=== PATIENT | female | born 1995 | race Caucasian/White ===

== ENCOUNTER 2017-03-22 15:24 | Emergency (ER) | payer OTHER | END 2017-03-22 16:40 | disposition left against medical advice (07) | LOC: UCCORT 15:24 | DX: J02.9 Acute pharyngitis, unspecified (principal); Z53.21 Procedure and treatment not carried out due to patient leaving prior to being seen by health care provider ==

== ENCOUNTER 2017-03-23 10:01 | Emergency (ER) | payer SELFPAY ==
[2017-03-23] MEDS ORDERED: Ibuprofen TAB* 600 MG PO ONE (10:47)
--- NOTE | 2017-03-23 10:51 | UC ---
Throat Pain/Nasal Jae HPI - HPI Summary HPI Summary: Patient has had sore throat for 3 days, last night it became severe and hard to swollow. Has felt feverish and has RUGGIERO. - History of Current Complaint Stated Complaint: THROAT Time Seen by Provider: 03/23/17 10:45 Hx Obtained From: Patient Hx Last Menstrual Period: 04/27/14 ?: No Onset/Duration: Sudden Onset, Lasting Days Severity: Severe Associated Signs & Symptoms: Positive: Dysphagia, Fever - Epiglottits Risk Factors Epiglottis Risk Factors: Negative - Allergies/Home Medications Allergies/Adverse Reactions: Allergies Allergy/AdvReac Type Severity Reaction Status Date / Time No Known Allergies Allergy Verified 03/23/17 10:59 PMH/Surg Hx/FS Hx/Imm Hx Previously Healthy: Yes - Surgical History Surgical History: None - Family History Known Family History: Negative: Cardiac Disease, Hypertension - Social History Alcohol Use: None Substance Use Type: None Household Exposure Type: Cigarettes Review of Systems Constitutional: Fever, Fatigue Skin: Negative Eyes: Negative ENT: Sore Throat, Ear Ache, Nasal Discharge Respiratory: Cough Cardiovascular: Negative Gastrointestinal: Negative Genitourinary: Negative Motor: Negative Neurovascular: Negative Musculoskeletal: Negative Neurological: Headache Psychological: Negative All Other Systems Reviewed And Are Negative: Yes Physical Exam Triage Information Reviewed: Yes Appearance: Well-Nourished, Ill-Appearing, Pain Distress Vital Signs Reviewed: Yes Eye Exam: Normal Eyes: Positive: Conjunctiva Clear ENT: Positive: Pharyngeal erythema, TM bulging, TM red, Tonsillar swelling - +3 , Tonsillar exudate Dental Exam: Normal Neck exam: Normal Neck: Positive: Supple, Nontender, No Lymphadenopathy Respiratory Exam: Normal Respiratory: Positive: Chest non-tender, Lungs clear, Normal breath sounds Cardiovascular Exam: Normal Cardiovascular: Positive: RRR, No Murmur, Pulses Normal Abdominal Exam: Normal Abdomen Description: Positive: Nontender, No Organomegaly, Soft Musculoskeletal Exam: Normal Musculoskeletal: Positive: Strength Intact, ROM Intact, No Edema Neurological Exam: Normal Neurological: Positive: Alert, Muscle Tone Normal Psychological Exam: Normal Skin Exam: Normal Throat Pain/Nasal Course/Dx - Course Course Of Treatment: Hx obtained, exam performed, meds reviewed, ibuprofen given for pain and fever. Rapid strep obtained and is negative, tonsills are large and inflammed, +3 exudate present. - Differential Dx/Diagnosis Differential Diagnosis/HQI/PQRI: Influenza, Laryngitis, Otitis Media, Pharyngitis, Sinusitis, URI Provider Diagnoses: tonsillitis. fever Discharge - Discharge Plan Condition: Stable Disposition: HOME Patient Education Materials: Tonsillitis (ED) Additional Instructions: 1. take the medications as prescirbed. 2. Increase your fluid intake and get plenty of rest. 3. Continue with Ibuprofen or tylenol every 4 hours as needed. 4. Follow up with any worsening symptoms
[2017-03-23 11:04] VITALS: BP 108/52
== END 2017-03-23 11:20 | disposition home or self-care (01) ==
LOC: UCCORT 10:01
DX: J03.90 Acute tonsillitis, unspecified (principal); R50.9 Fever, unspecified; Z77.22 Contact with and (suspected) exposure to environmental tobacco smoke (acute) (chronic)
CPT/HCPCS: 87651; 99212; A9270-GY; G0463

== ENCOUNTER 2019-12-29 09:55 | Emergency (ER) | payer SELFPAY ==
--- NOTE | 2019-12-29 10:20 | ED ---
Upper Extremity Pain - HPI Summary HPI Summary: The patient is a 24 y/o F presenting to [facility] with a cc of traumatic left shoulder pain onset last night after sustaining a fall down the stairs. She reports that she was walking down the stairs at home last night while carrying her dog, and she slipped down three stairs, causing her to fall on the left shoulder. She is suffering from pain worst near the acromioclavicular joint, with swelling and bruising. She is able to move the shoulder, although there is decreased ROM secondary to pain with extension but not with internal or external rotation. There is no pain in the humerus, elbow, or hand, and she denies any numbness or tingling in the hand. The RUE is unaffected. Symptoms currently rated 10/10 in severity. Aching pain alleviated with rest. Right hand dominant. No PMHx. Current smoker, no EtOH, no substance use. Medications reviewed. Allergies noted. - History of Current Complaint Chief Complaint: EDShoulderClavicleInj Stated Complaint: POSS L SHOULDER DISLOCATION PER PT Time Seen by Provider: 12/29/19 10:01 Hx Obtained From: Patient Hx Last Menstrual Period: 04/27/14 Mechanism Of Injury: Fall From A Standing Position - down three stairs, landing on left shoulder Onset/Duration: Started Hours Ago, Traumatic, Still Present Timing: Constant Severity Initially: Moderate Severity Currently: Severe Pain Location: Shoulder - left Character: Aching Aggravating Factor(s): Extension Alleviating Factor(s): Rest Associated Signs & Symptoms: Negative: Numbness/Tingling Related History: Dominant Hand Right - Allergies/Home Medications Allergies/Adverse Reactions: Allergies Allergy/AdvReac Type Severity Reaction Status Date / Time morphine Allergy Blisters Verified 12/29/19 10:00 Penicillins Allergy Rash And Verified 12/29/19 10:00 Itching PMH/Surg Hx/FS Hx/Imm Hx Endocrine/Hematology History: Denies: Hx Diabetes Cardiovascular History: Denies: Hx Hypertension Respiratory History: Denies: Hx Asthma - Surgical History Surgical History: None Surgery Procedure, Year, and Place: none Infectious Disease History: No Infectious Disease History: Denies: Traveled Outside the [place] in Last 30 Days - Family History Known Family History: Negative: Cardiac Disease, Hypertension - Social History Alcohol Use: None Hx Substance Use: No Substance Use Type: Reports: None Hx Tobacco Use: Yes Smoking Status (MU): Heavy Every Day Tobacco Smoker Type: Cigarettes Amount Used/How Often: 1/2 ppd Length of Time of Smoking/Using Tobacco: since age 19 Have You Smoked in the Last Year: Yes Review of Systems Positive: Arthralgia - left shoulder, with swelling, Decreased ROM - of LUE secondary to pain. Negative: Other - pain in RUE, or L humerus, elbow, or hand Positive: Bruising - left shoulder Negative: Paresthesia - in left hand, Numbness - in left hand All Other Systems Reviewed And Are Negative: Yes Physical Exam - Summary Physical Exam Summary: Constitutional: Well-developed, Well-nourished, Alert. (-) Distressed Skin: Warm, Dry HENT: Normocephalic; Atraumatic Eyes: Conjunctiva normal Neck: Musculoskeletal ROM normal neck. (-) JVD, (-) Stridor, (-) Nuchal rigidity Cardio: Rhythm regular, rate normal, Heart sounds normal; Intact distal pulses; Radial pulses are 2+ and symmetric. (-) Murmur Pulmonary/Chest wall: Effort normal. (-) Respiratory distress, (-) Wheezes, (-) Rales Abd: Soft, (-) tenderness, (-) Distension, (-) Guarding, (-) Rebound Musculoskeletal: (-) Edema, Tenderness of L AC joint, L anterior shoulder, L clavicular tenderness, Pain with shoulder extension, FROM, No pain with supination/pronation, No tenderness of the left humerus, elbow, forearm, or wrist Lymph: (-) Cervical adenopathy Neuro: Alert, Oriented x3 Psych: Mood and affect Normal Triage Information Reviewed: Yes Vital Signs On Initial Exam: Initial Vitals Temp Pulse Resp BP Pulse Ox 98.2 F 79 14 142/91 99 12/29/19 09:56 12/29/19 09:56 12/29/19 09:56 12/29/19 09:56 12/29/19 09:56 Vital Signs Reviewed: Yes Procedures - Sedation Patient Received Moderate/Deep Sedation with Procedure: No Diagnostics - Vital Signs Vital Signs Temp Pulse Resp BP Pulse Ox 12/29/19 09:56 98.2 F 79 14 142/91 99 - Laboratory Lab Statement: Any lab studies that have been ordered have been reviewed, and results considered in the medical decision making process. - Radiology L Clavicle XR Radiology Interpretation Completed By: Radiologist Summary of Radiographic Findings: Impression: Mild AC separation. ED physician has reviewed this report. L Shoulder XR Radiology Interpretation Completed By: Radiologist Summary of Radiographic Findings: Impression: No fracture identified. ED physician has reviewed this report. Re-Evaluation - Re-Evaluation First Eval Re-Evaluation Time: 11:25 Comment: Discussed results and plan for d/c Course/Dx - Course Course Of Treatment: 24 y/o F p/w L shoulder pain after fall. - PE w tenderness of AC joint, anterior shoulder. XR shows AC separation. Given motrin. - Diagnoses Provider Diagnoses: Fall, AC separation Discharge ED - Sign-Out/Discharge Documenting (check all that apply): Patient Departure - Patient will be discharged home. - Discharge Plan Condition: Stable Disposition: HOME Prescriptions: Ibuprofen TAB* [Motrin TAB* 800 MG] 800 mg PO TID PRN 10 Days #30 tab PRN Reason: Pain - Moderate Patient Education Materials: Acromioclavicular Separation (ED) Referrals: [facility] [Outside] - 3 Days Additional Instructions: You were seen in the emergency department for shoulder pain. Your Xray showed an AC separation. Please take motrin for pain. This can take several weeks to heal. Please follow up with your primary care doctor in the next 2-3 days and return to the emergency department for worsening or concerning symptoms. It was a pleasure taking care of you today. - Attestation Statements Document Initiated by Scribe: Yes Documenting Scribe: Sussy West Provider For Whom Cortes is Documenting (Include Credential): Dr. Maria L Sesay MD Scribe Attestation: Sussy Groves, lawrenceibed for Dr. Maria L Sesay MD on 12/29/19 at 1138. Status of Scribe Document: Ready
[2019-12-29] MEDS ORDERED: Ibuprofen TAB* 600 MG PO ONE (10:40)
[2019-12-29 11:53] VITALS: BP 138/71
== END 2019-12-29 11:52 | disposition home or self-care (01) ==
LOC: ED 09:55
DX: S43.102A Unspecified dislocation of left acromioclavicular joint, initial encounter (principal); W10.9XXA Fall (on) (from) unspecified stairs and steps, initial encounter; Y93.89 Activity, other specified; Y92.9 Unspecified place or not applicable; Z88.5 Allergy status to narcotic agent; Z88.0 Allergy status to penicillin; F17.210 Nicotine dependence, cigarettes, uncomplicated
CPT/HCPCS: 99282; A9270-GY

== ENCOUNTER 2020-01-13 07:22 | Emergency (ER) | payer OTHER ==
[2020-01-13] MEDS ORDERED: Ibuprofen TAB* 600 MG PO ONE (07:33)
--- NOTE | 2020-01-13 08:05 | ED ---
Complex/Multi-Sys Presentation - HPI Summary HPI Summary: Patient is a 24 y/o F presenting to the ED for a chief complaint of left-sided rib pain after a fall that occurred about one week ago. Patient states that at that time, she was walking down stairs covered in ice when she slipped and fell , landing on her left side. Patient also complains of a cough and ecchymosis of the left shoulder. Patient denies left shoulder pain. She believes she has a rib fracture. Patient took ibuprofen for the pain with some relief. The rib pain worsens with deep breaths and coughing. Any significant PMHx, PSHx, or FMHx is denied. - History Of Current Complaint Chief Complaint: EDChestWallPain Time Seen by Provider: 01/13/20 07:33 Hx Obtained From: Patient Onset/Duration: Sudden Onset, Lasting Days, Still Present Timing: Constant Severity Currently: Moderate Severity Initially: Moderate Aggravating Factor(s): Deep breaths and coughing Alleviating Factor(s): Nothing Associated Signs And Symptoms: Positive: Cough, Other - Positive left-sided rib pain, left shoulder ecchymosis; negative left shoulder pain - Allergies/Home Medications Allergies/Adverse Reactions: Allergies Allergy/AdvReac Type Severity Reaction Status Date / Time morphine Allergy Blisters Verified 12/29/19 10:00 Penicillins Allergy Rash And Verified 12/29/19 10:00 Itching Home Medications: Home Medications Ibuprofen TAB* [Motrin TAB* 800 MG] 800 mg PO TID PRN 10 Days #30 tab 12/29/19 [ Rx Confirmed 01/13/20] Cyclobenzaprine TAB* [Flexeril 10 MG TAB*] 10 mg PO TID PRN 4 Days #12 tab 01/12 [Rx] PMH/Surg Hx/FS Hx/Imm Hx Previously Healthy: Yes Endocrine/Hematology History: Denies: Hx Diabetes Cardiovascular History: Denies: Hx Hypertension Respiratory History: Denies: Hx Asthma Sensory History: Denies: Hx Legally Blind, Hx Deafness Opthamlomology History: Denies: Hx Legally Blind EENT History: Denies: Hx Deafness - Surgical History Surgical History: None Surgery Procedure, Year, and Place: none Infectious Disease History: No Infectious Disease History: Denies: Traveled Outside the [place] in Last 30 Days - Family History Known Family History: Negative: Cardiac Disease, Hypertension - Social History Occupation: Student Alcohol Use: Weekly Hx Substance Use: No Substance Use Type: Reports: None Hx Tobacco Use: Yes Smoking Status (MU): Heavy Every Day Tobacco Smoker Type: Cigarettes Amount Used/How Often: 1/2 ppd Length of Time of Smoking/Using Tobacco: since age 19 Have You Smoked in the Last Year: Yes Review of Systems Positive: Other - Positive left-sided rib pain Positive: Cough Positive: Bruising - Left shoulder All Other Systems Reviewed And Are Negative: Yes Physical Exam - Summary Physical Exam Summary: Constitutional: Well-developed, Well-nourished, Alert. (-) Distressed Skin: Warm, Dry HENT: Normocephalic; Atraumatic Eyes: Conjunctiva normal Neck: Musculoskeletal ROM normal neck. (-) JVD, (-) Stridor, (-) Nuchal rigidity Cardio: Rhythm regular, rate normal, Heart sounds normal; Intact distal pulses; Radial pulses are 2+ and symmetric. (-) Murmur Pulmonary/Chest wall: Effort normal. (-) Respiratory distress, (-) Wheezes, (-) Rales Abd: Soft, (-) tenderness, (-) Distension, (-) Guarding, (-) Rebound Musculoskeletal: (-) Edema. Anterior left lower rib tenderness. Neuro: Alert, Oriented x3 Psych: Mood and affect Normal Triage Information Reviewed: Yes Vital Signs On Initial Exam: Initial Vitals Temp Pulse Resp BP Pulse Ox 97.4 F 83 18 124/76 99 01/13/20 07:24 01/13/20 07:24 01/13/20 07:24 01/13/20 07:24 01/13/20 07:24 Vital Signs Reviewed: Yes Procedures - Sedation Patient Received Moderate/Deep Sedation with Procedure: No Diagnostics - Vital Signs Vital Signs Temp Pulse Resp BP Pulse Ox 01/13/20 07:55 76 146/92 98 01/13/20 07:24 97.4 F 83 18 124/76 99 - Laboratory Lab Statement: Any lab studies that have been ordered have been reviewed, and results considered in the medical decision making process. - Radiology Ribs W/ Chest X-ray Radiology Interpretation Completed By: Radiologist Summary of Radiographic Findings: Ribs w/ Chest X-ray IMPRESSION: NO DISPLACED RIB FRACTURE OR PNEUMOTHORAX. Reviewed by Dr. Sesay. Complex Multi-Symp Course/Dx Course Of Treatment: 24 -year-old female presents with left chest wall pain after coughing. Physical exam: well-appearing, easy work of breathing on room air. Mild tenderness of the anterior left ribs. X-ray does not show any fractures. Given Motrin and Flexeril as well as lidocaine patch for pain. - Diagnoses Provider Diagnoses: Rib contusion Discharge ED - Sign-Out/Discharge Documenting (check all that apply): Patient Departure - Discharge - Discharge Plan Condition: Stable Disposition: HOME Prescriptions: Cyclobenzaprine TAB* [Flexeril 10 MG TAB*] 10 mg PO TID PRN 4 Days #12 tab PRN Reason: Pain - Moderate Patient Education Materials: Rib Contusion (ED) Referrals: [facility] [Outside] Additional Instructions: You were seen in the emergency department for rib pain. Your xray did not show any fractures. You can take motrin and flexeril for pain. You can get over the counter lidocaine patches as well. Please follow up with your primary care doctor in next 2-3 days and return to emergency department for trouble breathing, worsening or concerning symptoms. It was a pleasure taking care of you today. - Billing Disposition and Condition Condition: STABLE Disposition: Home - Attestation Statements Document Initiated by Scribe: Yes Documenting Scribe: Ritu Lozoya Provider For Whom Cortes is Documenting (Include Credential): Maria L Sesay MD Scribe Attestation: IRitu, scribed for Maria L Sesay MD on 01/13/20 at 0923. Scribe Documentation Reviewed: Yes Provider Attestation: The documentation as recorded by the Ritu noland accurately reflects the service I personally performed and the decisions made by me, Maria L Sesay MD Status of Scribe Document: Viewed
[2020-01-13] MEDS ORDERED: Lidocaine PATCH 5%* 1 PATCH TRANSDERM SCH (08:33)
[2020-01-13 09:06] VITALS: BP 136/72
[2020-01-13] MEDS ORDERED: Lidocaine Patch REMOVE* 1 NOTE MISC SCH ×2 (21:00)
== END 2020-01-13 09:45 | disposition home or self-care (01) ==
LOC: ED 07:22
DX: S20.20XA Contusion of thorax, unspecified, initial encounter (principal); S40.012A Contusion of left shoulder, initial encounter; W00.1XXA Fall from stairs and steps due to ice and snow, initial encounter; Y92.9 Unspecified place or not applicable; R05 Cough; Z88.5 Allergy status to narcotic agent; Z88.0 Allergy status to penicillin; F17.210 Nicotine dependence, cigarettes, uncomplicated
CPT/HCPCS: 99282; A9270-GY